=== PATIENT | female | born 1945 | race Native Hawaiian/Other Pacific Islander ===

== ENCOUNTER 2017-02-26 09:35 | Day surgery (SDC) | payer MEDICAID ==
[2017-02-19 08:08] VITALS: BMI 25.4
[2017-02-26] MEDS ORDERED: Lidocaine Hydrochloride 5 ML INJ ONE (11:36)
[2017-02-26] MEDS ORDERED: Midazolam 2 MG/2 ML VIAL ONE (11:36)
[2017-02-26] MEDS ORDERED: Propofol 10 mg/ml Inj (20 ML) ONE (11:36)
[2017-02-26] MEDS ORDERED: ceFAZolin IV 1 gm in Dextrose 1 GM/50 ML BAG IVPB ONE (11:38)
[2017-02-26] MEDS ORDERED: Iohexol 240 (50 ml) ONE ×2 (11:38→12:55)
[2017-02-26] MEDS ORDERED: Lactated Ringer's 1,000 ML IV ONE ×3 (11:45→14:05)
[2017-02-26] MEDS ORDERED: Neostigmine Methylsulfate 3mg/3ml Syringe IV ONE (13:41)
--- NOTE | 2017-02-26 14:08 | PCM.SURG1 ---
Surgeon's Initial Post Op Note - Surgeon's Notes Surgeon: Dr. Bravo Subeditor: Dr. Melara PGY2, Marily Dixon Type of Anesthesia: General Endo Pre-Operative Diagnosis: cholelithaisis Operative Findings: see dictation Post-Operative Diagnosis: same Operation Performed: laparoscopic cholecystectomy w/ IOC Specimen/Specimens Removed: gallbladder Estimated Blood Loss: EBL {In ML}: 50 Blood Products Given: N/A Drains Used: No Drains Post-Op Condition: Good Date of Surgery/Procedure: 02/26/17 Time of Surgery/Procedure: 12:10
[2017-02-26] MEDS ORDERED: Lactated Ringer's 1,000 ML IV SCH (14:30)
[2017-02-26 17:46] VITALS: BP 146/70; PULSE 68; RESP 18; TEMP 98; O2SAT 100
--- NOTE | 2017-02-26 19:49 | OP ---
PROCEDURE DATE: 02/26/2017 PREOPERATIVE DIAGNOSES: Cholelithiasis, abdominal pain. PROCEDURE CARRIED OUT: Laparoscopic cholecystectomy with C-arm cholangiogram. SURGEON: Joaquín Bravo Jr., MD BURN NURSE: Dr. Melara. ANESTHESIA ADMINISTERED BY: Javi Star. INDICATIONS: The patient is a 71-year-old [place] woman with history of adult onset diabetes, hypertension, who presents with abdominal pain. OPERATIVE FINDINGS: The cholangiogram carried out to the cystic duct showed free flow into the duodenum, visualization of the hepatic radicles. There was a very short cystic duct. We spent a great deal of time dissecting this carefully to identify all the structures. Prior to clipping anything, we carried out an adequate view of safety. DESCRIPTION OF PROCEDURE: The patient was given general anesthesia, intravenous antibiotics. Venodyne boots were applied. A Charlotte trocar was inserted via cut-down technique in the umbilicus. Two additional 5 mm trocars were placed. The cystic duct, cystic artery and view of safety were obtained. Cholangiogram was then carried out to the cystic duct, which confirmed our findings of a short cystic duct. After we had seen flow into the duodenum, visualization of the hepatic radicles and no evidence of any stones or strictures, we clipped the cystic duct and cystic artery. We removed the gallbladder from the field and brought it out in a bag and then irrigated out the abdomen. Blood loss for procedure was less than 100 mL. No drain was left. The umbilicus was closed until we had an airtight closure and the subcuticular closure was carried out on the ports. The operation carried out was laparoscopic cholecystectomy with cholangiogram. Joaquín Bravo Jr., MD cc: MD Norma Rob MD
--- NOTE | 2017-02-27 15:19 | RAD ---
PROCEDURE: HISTORY: Fluoroscopy for laparoscopic cholecystectomy COMPARISON: TECHNIQUE: Total fluoroscopic time utilized during the procedure: 47.0 seconds. Total dose 14.95 mGy cm squared FINDINGS: Submitted images from the current procedure: 7 Please refer to the physician's notes performing the procedure. No filling defects within the opacified biliary tree appreciated. Contrast in duodenum IMPRESSION: Less than 1 hour fluoroscopic time utilized during performance of the procedure
== END 2017-02-26 17:48 | disposition home or self-care (01) ==
LOC: C.SDS 09:35
PROVIDERS: ATTEND Surgery Vascular Surgery
DX: K80.10 Calculus of gallbladder with chronic cholecystitis without obstruction (principal)
CPT/HCPCS: 47563; 82948; 88304; J0690; J1170; J2250; J2405; J2704; J2710; J3010; J7040; J7120; Q9966

== ENCOUNTER 2018-05-15 08:09 | Day surgery (SDC) | payer OTHER ==
[2018-05-15 08:29] VITALS: BMI 24.4
[2018-05-15] MEDS ORDERED: Lactated Ringer's 500 ML IV SCH (09:15)
--- NOTE | 2018-05-15 09:27 | CP.SDSHP ---
Same Day Surgery H & P - History Proposed Procedure: colonoscopy - Previous Medical/Surgical History Cardiac: Hypertension Endocrine/Metabolic: Diabetes Previous Surgical History: mastectomy Csection cholecystectomy - Allergies Allergies: Allergies No Known Allergies Allergy (Verified 05/15/18 08:29) - Physical Exam Vital Signs: Vital Signs 05/15/18 08:40 Temperature 96.6 F L Pulse Rate 63 Respiratory 20 Rate Blood Pressure 156/57 H O2 Sat by Pulse 99 Oximetry - Date & Time Date: 05/15/18 Time: 09:26 Short Stay Discharge - Short Stay Discharge Admitting Diagnosis/Reason for Visit: SCREENING Disposition: HOME/ ROUTINE
[2018-05-15] MEDS ORDERED: Propofol 10 mg/ml Inj (20 ML) ONE (09:40)
[2018-05-15] MEDS ORDERED: Lactated Ringer's 500 ML IV ONE (09:57)
[2018-05-15 10:52] VITALS: TEMP 98; O2SAT 100
[2018-05-15 11:02] VITALS: RESP 13
[2018-05-15 11:34] VITALS: BP 142/76; PULSE 53
== END 2018-05-15 11:32 | disposition home or self-care (01) ==
LOC: C.ENDO 08:09
PROVIDERS: ATTEND Colon & Rectal Surgery
DX: Z12.11 Encounter for screening for malignant neoplasm of colon (principal); K64.8 Other hemorrhoids
CPT/HCPCS: 45378; 82948; J2001; J2704; J7120